=== PATIENT | male | born 1955 | race Two or more races ===

== ENCOUNTER 2025-03-07 13:36 | Inpatient (IN) | payer OTHER ==
[2025-03-07] VITALS (16 sets, daily range): BP systolic 121–178; BP diastolic 65–125; PULSE 71–91; RESP 9–16; TEMP 96.9–98; O2SAT 89–100
[~2025-03-07] VITALS: Ht 170.2 cm; Wt 83.6 kg
--- NOTE | 2025-03-07 13:49 | ED.PDOC ---
HPI Comments 69-year-old male with a medical history of diabetes, presents to the ED via EMS for a chief complaint of substernal chest pain that started today. Patient describes pain as sharp, constant, radiates to his back, and has no alleviating factors. EMS administrated one nitroglycerin with mild relief. Patient's blood glucose EN route was 323. Patient does take metformin for his diabetes and has been compliant with the medication. Patient denies any palpitations, shortness for breath, abdominal pain, nausea, or vomiting. 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, Medications, Allergies Allergies: Coded Allergies: NO KNOWN ALLERGIES (Unverified , 03/07/25) Information Source: Patient, Emergency Med Personnel Mode of Arrival: EMS Severity: Moderate Timing: Hours Duration: Since onset Prehospital treatment: 12 Lead EKG, Refrigerating Technician, NTG Location: Substernal Radiation: Back Quality: Sharp Onset: At Rest Cardiac Risk Factors: Diabetes PE Risk Factors: None History of: None Associated Signs and Symptoms: Back Pain Past Medical History PAST MEDICAL HISTORY: DM Surgical History: Denies all surgeries Family History Family History: Reviewed,noncontributory to illness Social History Smoker: Non-Smoker Alcohol: Denies ETOH Use Drugs: Denies Drug Use Lives In: Home Constitutional: denies: chills, diaphoresis, fatigue, fever, malaise, sweats, weakness, others EENTM: denies: blurred vision, double vision, ear bleeding, ear discharge, ear drainage, ear pain, ear ringing, eye pain, eye redness, hearing loss, mouth pain, mouth swelling, nasal discharge, nose bleeding, nose congestion, nose pain, photophobia, tearing, throat pain, throat swelling, voice changes, others Respiratory: denies: cough, hemoptysis, orthopnea, SOB at rest, shortness of breath, SOB with excertion, stridor, wheezing, others Cardiovascular: reports: chest pain; denies: dizzy spells, diaphoresis, Dyspnea on exertion, edema, irregular heart beat, left arm pain, lightheadedness, palpitations, PND, syncope, others Gastrointestinal: denies: abdomen distended, abdominal pain, blood streaked bowels, constipated, diarrhea, dysphagia, difficulty swallowing, hematemesis, melena, nausea, poor appetite, poor fluid intake, rectal bleeding, rectal pain, vomiting, others Genitourinary: denies: burning, dysuria, flank pain, frequency, hematuria, incontinence, penile discharge, penile sore, pain, testicle pain, testicle swelling, urgency, others Neurological: denies: dizziness, fainting, headache, left sided numbness, left sided weakness, numbness, paresthesia, pre-existing deficit, right sided numbness, right sided weakness, seizure, speech problems, tingling, tremors, weakness, others Musculoskeletal: reports: back pain; denies: gout, joint pain, joint swelling, muscle pain, muscle stiffness, neck pain, others Integumetry: denies: bruises, change in color, change in hair/nails, dryness, laceration, lesions, lumps, rash, wounds, others Allergic/Immunocompromised: denies: Difficulty Healing, Frequent Infections, Hives, Itching, others Hematologic/Lymphatic: denies: anemia, blood clots, easy bleeding, easy bruising, swollen glands, others Endocrine: denies: excessive hunger, excessive sweating, excessive thirst, excessive urination, flushing, intolerance to cold, intolerance to heat, unexplained weight gain, unexplained weight loss, others Psychiatric: denies: anxiety, bipolar disorder, depression, hopeless, panic disorder, schizophrenia, sleepless, suicidal, others All Other Systems: Reviewed and Negative Physical Exam General Appearance: Moderate Distress HEENT: Normal ENT Inspection, Pharynx Normal, TMs Normal Neck: Full Range of Motion, Non-Tender, Normal, Normal Inspection Respiratory: Chest Non-Tender, Lungs Clear, No Accessory Muscle Use, No Respiratory Distress, Normal Breath Sounds Cardiovascular: No Edema, No JVD, No Murmur, No Gallop, Normal Peripheral Pulses, Regular Rate/Rhythm Breast Exam: Deferred Gastrointestinal: No Organomegaly, Non Tender, No Pulsatile Mass, Normal Bowel Sounds, Soft Genitalia: Deferred Pelvic: Deferred Rectal: Deferred Extremities: No calf tenderness, Normal capillary refill, Normal inspection, Normal range of motion, Non-tender, No pedal edema Musculoskeletal : Apperance: Normal Neurologic: Alert, heel finisher II-XII nml as Tested, No Motor Deficits, Normal Affect, Normal Mood, No Sensory Deficits Cerebellar Function: NOT DONE Reflexes: NOT DONE Skin: Dry, Normal Color, Warm Peripheral Pulses: 3+ Radial (R), 3+ Radial (L) Lymphatic: No Adenopathy Was a procedure done? Was a procedure done?: No CP Differential Dx Differential Diagnosis: A-fib, A-Flutter, Angina, Anxiety / Panic Attack, Atrial Dysrhythmia, Electrolyte Disorder, IA Differential Diagnosis: Angina, Aortic dissection, Chest Wall Pain, Cholelithiasis, Costochondritis, Esophageal reflux/spasm, Myocardial Infarction, Pericarditis X-Ray, Labs, Meds, VS Vital Signs Date Time Temp Pulse Resp B/P (MAP) Pulse Ox O2 Delivery O2 Flow Rate FiO2 03/07/25 13:43 98.0 75 34 139/98 94 98.0 03/07/25 13:42 78 Lab Test 03/07/25 13:41 Range/Units White Blood Count 10.7 4.4-10.8 10^3/uL Red Blood Count 4.40 L 4.5-5.90 10^6/uL Hemoglobin 13.6 13.5-17.5 g/dL Hematocrit 39.5 L 41.0-53.0 % Mean Corpuscular Volume 89.9 80.0-100.0 fL Mean Corpuscular Hemoglobin 31.0 28.0-32.0 pg Mean Corpuscular Hemoglobin Concent 34.5 32.0-36.0 g/dL Red Cell Distribution Width 13.2 11.8-14.3 % Platelet Count 233 140-450 10^3/uL Mean Platelet Volume 8.4 6.9-10.8 fL Neutrophils (%) (Auto) 69.2 37.0-80.0 % Lymphocytes (%) (Auto) 19.6 10.0-50.0 % Monocytes (%) (Auto) 10.2 0.0-12.0 % Eosinophils (%) (Auto) 0.4 0.0-7.0 % Basophils (%) (Auto) 0.6 0.0-2.0 % Neutrophils # (Auto) 7.4 1.6-8.6 10 ^3/uL Lymphocytes # (Auto) 2.1 0.4-5.4 10 ^3/uL Monocytes # (Auto) 1.1 0-1.3 10 ^3/uL Eosinophils # (Auto) 0 0-0.8 10 ^3/uL Basophils # (Auto) 0.1 0-0.2 10 ^3/uL Nucleated Red Blood Cells 0.0 % Prothrombin Time Pending Prothrombin Time INR Pending Activated Partial Thromboplast Time Pending Sodium Level Pending Potassium Level Pending Chloride Level Pending Carbon Dioxide Level Pending Anion Gap Pending Blood Urea Nitrogen Pending Creatinine Pending Glomerular Filtration Rate Calc Pending BUN/Creatinine Ratio Pending Serum Glucose Pending Hemoglobin A1c Pending Calcium Level Pending Troponin I High Sensitivity Pending Triglycerides Level Pending Cholesterol Level Pending LDL Cholesterol Pending HDL Cholesterol Pending Patient alert. Complaining of chest pain. Vitals stable. Answering questions. Rhythm strip seen by the paramedics does show STEMI. EKG showed here does show improvement after giving aspirin nitro. Patient continues to have chest pain. Was given heparin. Cardiology at bedside. Transferred to section laborer. Time of 1ST Reevaluation: 13:49 Reevaluation 1ST: Unchanged Patient Education/Counseling: Diagnosis, Treatment, Prognosis Family Education/Counseling: No Family Present SEPSIS Sepsis Screen Physician Orders Urinalysis (03/07/25 13:46) Chest Portable (03/07/25 13:54) Troponin-I Hs (03/07/25 13:47) Electrocardigram (03/07/25 13:47) Troponin-I Hs (03/07/25 14:47) Troponin-I Hs (03/07/25 16:47) Electrocardigram (03/07/25 14:47) Electrocardigram (03/07/25 16:47) Basic Metabolic Panel (03/07/25 13:47) Type And Screen (03/07/25 13:47) Lipid Panel (03/07/25 13:47) PTPTT (03/07/25 13:47) Prothrombin Time W/ Inr (03/07/25 13:47) Hemoglobin A1c (03/07/25 13:47) Morphine Sulfate Injection (03/07/25 14:15) Ondansetron Hcl (Zofran) (03/07/25 14:15) Cl Left Heart Cath (03/07/25 14:05) Cl Left Heart Cath (03/07/25 14:09) Vital Signs Date Time Temp Pulse Resp B/P (MAP) Pulse Ox O2 Delivery O2 Flow Rate FiO2 03/07/25 13:43 98.0 75 34 139/98 94 98.0 03/07/25 13:42 78 Laboratory Tests Test 03/07/25 13:41 White Blood Count 10.7 10^3/uL (4.4-10.8) Departure 1 Departure Time of Disposition: 14:11 Impression: Primary Impression: STEMI (ST elevation myocardial infarction) Qualified Codes: I21.3 - ST elevation (STEMI) myocardial infarction of unspecified site Disposition: ADMITTED INPATIENT Admit to: ICU Condition: Guarded Critical Care Note Critical Care Time?: Yes Stability Stability form required: No Heart Score Heart Score: Heart Score Response (Comments) Value History Highly Suspicious [address]-Deviation 2 Age >65 2 Risk Factors >3 or Hx ASHD 2 Troponin N/A 0 Total 8 I personally scribed for IRIS RUST MD ([email or web address]) on 03/07/25 at 13:49. Electronically submitted by Vy Lorenzo ([facility]). IRIS RUST MD Mar 07, 2025 13:49
[2025-03-07 14:02] LABS: Hematocrit 39.5 % (41.0-53.0); Hemoglobin 13.6 g/dL (13.5-17.5); Mean Corpuscular Hemoglobin 31.0 pg (28.0-32.0); Mean Corpuscular Volume 89.9 fL (80.0-100.0); Nucleated Red Blood Cells % 0.0 %
--- NOTE | 2025-03-07 14:05 | DVHINCON2 ---
Date of service: Mar 07, 2025 History of Present Illness 69 yo M non compliant, DM, HTN, poor dentition, had cath many yearts ago, poor historian called 911 with chest pain while driving from [place] to here. ecg in route showed stemi. stemi called by ER prior to ECG here and i was in hospital and saw pt immediately. ecg here showed SR, RBBB, LAFB and improved st elevation but still ongoing chest pain. pt seen with dustin DENSON speaking indian. he stopped all his meds x 1 month for unknown reasons. BS is over [address] sawant Past Medical History reviewed Allergies: Coded Allergies: NO KNOWN ALLERGIES (Unverified , 03/07/25) Review of Systems 10 pt ros otherwise negative +chest pain +sob Vital Signs Vital Signs Date Time Temp Pulse Resp B/P (MAP) Pulse Ox O2 Delivery O2 Flow Rate FiO2 03/07/25 13:42 78 Physical Exam mild distress, no teeth pt is disheveled appearance s1 s2 rrr diffuse rhonchi abd obese, morbid, soft NT trivial edema Labs/Diagnostic Data Labs Test 03/07/25 13:41 Range/Units Assessment stemi rbbb lafb non compliance dm elevated blood sugar ckd htn Plan/Recommendation obtained informed consent with pt and dustin DENSON espanol pt agrees to plan , hes at highest risk for cv complications given comorbiditeis and acuity of presentation pt wishes to proceed asa heparin cxr reviewed d/w dr sawant 90 mins critical care time spen,t >50% face to face , Plan discussed with: Patient, Other (rn) MACO PINA MD Mar 07, 2025 14:05
[2025-03-07 14:08] LABS: Potassium 3.9 mmol/L (3.5-5.1); Sodium 144 mmol/L (136-145)
[2025-03-07 14:09] LABS: Anion Gap 14 (5-15); Calcium 10.1 mg/dL (8.7-10.4); Carbon Dioxide 23 mmol/L (20-31)
[2025-03-07] MEDS: HEPARIN SODIUM (PORCINE) 5000 UNITS/ML 1ML VIAL IV ONE (14:11)
--- NOTE | 2025-03-07 14:11 | DVH ---
CHEST RADIOGRAPH Indication: CHEST PAIN Technique: Single frontal view of the chest was obtained Comparison: None FINDINGS: Lines and Tubes: None Lungs: No focal consolidation. Pleura: No effusion. No pneumothorax. Cardiomediastinal contours: Calcified aortic arch. Bones: No acute osseous abnormality. IMPRESSION: 1. No acute cardiopulmonary disease.
[2025-03-07 14:12] LABS: Chloride 107 mmol/L (98-107)
[2025-03-07] MEDS: ANGIOMAX 250 MG VIAL IV ONE (14:12)
[2025-03-07] MEDS: SODIUM CHL 0.9% 50 ML ONE (14:13)
[2025-03-07] MEDS: fentaNYL CITRATE 100 MCG/2 ML VL ONE (14:13)
[2025-03-07] MEDS: MIDAZOLAM HCL 2MG/2ML 2ml VIAL (1mg/ml) ONE (14:13)
[2025-03-07 14:14] LABS: BUN/Creatinine Ratio 12.8 (10.0-20.0); Blood Urea Nitrogen 18 mg/dL (9-23)
[2025-03-07] MEDS: IODIXANOL 320MG/ML 100ML BTL IV ONE (14:14)
[2025-03-07] MEDS: HEPARIN IN NS 1000Units/500mL 1,500 ML ONE (14:14)
[2025-03-07 14:15] LABS: Glucose 289 mg/dL (74-106); INR 1.04 (0.9-1.15); Partial Thromboplastin Time 22.6 SEC (24.5-34.5); Prothrombin Time 11.0 sec (9.3-11.8); Triglycerides 156 mg/dL (< 150)
[2025-03-07 14:16] LABS: Cholesterol 172 mg/dL (< 200)
[2025-03-07 14:17] LABS: HDL Cholesterol 38 mg/dL (40-59)
[2025-03-07] MEDS: VERAPAMIL 2.5MG/ML INJ 2ML VIAL IV ONE (14:19)
[2025-03-07] MEDS: LIDOCAINE 2%HCL (LOCAL ANESTH.) INJ 20ML MDV ONE (14:19)
[2025-03-07] MEDS: ONDANSETRON HCL 4 MG/2 ML VIAL IV ONE (14:20)
[2025-03-07] MEDS: MORPHINE SULFATE 4 MG/ML SYR/VIAL IV ONE (14:21)
[2025-03-07] MEDS: TICAGRELOR 90 MG TAB ONE (14:49)
--- NOTE | 2025-03-07 15:22 | DVHOP2 ---
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 sedation 15-30 mins, sedation 31-45 mins, PTCA 1 vessel, PCI 1 vessel, Acute [place] intervention, IVUS 2 vessels (left main and LAD), PREOPERATIVE DIAGNOSES: Anterior stemi POSTOP DIAGNOSIS: same DESCRIPTION OF PROCEDURE: The patient or appropriate family signed informed consent understanding the risks, benefits and alternatives of the procedure, they wished to proceed. The patient was brought to the cardiac laborer hide house [place]. The patient was prepped in a sterile fashion. Sedation was used per cardiac cath protocol. I administered 2 mL of 2% lidocaine to the right wrist. With an antegrade front wall puncture. I cannulated the right radial artery and placed a 6-English Glidesheath slender. Next, an intra-arterial spasmolytic was administered. Next, a - 6French [place] catheter andXB3 guide and were used for coronary angiogram and LVEDP measurement and pressure pullback. At the completion of procedure, all guides and wires were removed, and there were no immediate complications. FINDINGS: RCA: Moderate vessel off the right sinus of Valsalva, there is no severe flow limiting stenosis. mild diffuse plaque LEFT MAIN: Moderate size left main, it btri urcates into LAD and circumflex. and RAMUS. its patent RAMUS: patent proximally with mild plaquing CIRCUMFLEX: Moderate caliber vessel coming off the left main with no flow limiting stenosis. 60% OM1 diffuse disease . mid CX has 50 % stenosis but small vessel LAD: LAD is a moderate caliber vessel coming of the left main. 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 I started with a 6F ___XB3_ Guide to intubate the LM __. Angiomax bolus and gtt was started. Following this, I decided to wire using an .014 BMW across the culprit lesion with ease. At this time, we performed balloon angioplasty with a _2.5 x 15 mm balloon by s12__ ATMS over __15__ seconds with __2_ number of inflations. Following this, I decided to place a stent using a 3.0 x 30 mm onyx____ stent inflated up to __18___ ATMS over 15 seconds with two separate inflations. Following this, the stent balloon removed and angio performed showing 0% residual stenosis. I brougth an hughes eye IVUS catheter but the the LAD had a 90 degree ostial turn and thus it would cross into prox LAD but not further given angulation. prox LAD and left main had mild diffuse plaque. COLIN pre/post: 3./3 CONCLUSIONS: 1. sp PCI to a 99% LAD, anterior stemi with WERO PLAN: Aggressive risk factor modification and medical management for the patient. DAPT x 1 year uninterrupted statin echo admit to icu MACO PINA MD Mar 07, 2025 15:22
[2025-03-07] MEDS ORDERED: MORPHINE SULFATE INJ 2 MG/ml SYRG IV PRN ×3 (15:30→16:30)
[2025-03-07] MEDS ORDERED: NITROGLYCERIN 0.4 MG SL TAB SL PRN ×2 (15:30→16:30)
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
[2025-03-07] MEDS ORDERED: ACETAMINOPHEN 325 MG TAB PO PRN (16:30)
[2025-03-07] MEDS ORDERED: ONDANSETRON HCL 4 MG/2 ML VIAL IV PRN (16:30)
[2025-03-07 16:57] LABS: Magnesium 2.0 mg/dL (1.6-2.6)
[2025-03-07 17:51] LABS: Lactic Acid w/Reflex 3.0 mmol/L (0.4-2.0)
[2025-03-07] MEDS ORDERED: DEXTROSE (50%) 50ML SYRG IV PRN (18:00)
[2025-03-07] MEDS: POTASSIUM PHOSPHATE 22 MEQ in SODIUM CHL 0.9% 100 ML IV ONE (18:30)
[2025-03-07] MEDS: HYDROcodone-ACET 5/325MG TAB PO PRN (20:27)
[2025-03-07] MEDS: TICAGRELOR 90 MG TAB PO SCH (21:09)
[2025-03-07] MEDS: ATORVASTATIN 20 MG TAB PO SCH (21:10)
[2025-03-07] MEDS: ENALAPRIL MALEATE 2.5 MG TAB PO SCH (21:10)
[2025-03-07] MEDS: CARVEDILOL 3.125 MG TAB PO SCH (21:11)
[2025-03-07] MEDS: InsuLIN REG 1unit/0.01ml Soln (100units/ml) SC SCH (21:22)
[2025-03-07] MEDS: ACCU-CHEK COMFORT CURVE STRIP VI SCH (21:23)
[2025-03-08] VITALS (21 sets, daily range): BP systolic 89–130; BP diastolic 39–67; PULSE 59–81; RESP 10–29; TEMP 97.5–98.5; O2SAT 80–100
[2025-03-08 04:25] LABS: Hematocrit 36.6 % (41.0-53.0); Hemoglobin 12.8 g/dL (13.5-17.5); Mean Corpuscular Hemoglobin 31.2 pg (28.0-32.0); Mean Corpuscular Volume 89.0 fL (80.0-100.0); Nucleated Red Blood Cells % 0.1 %
[2025-03-08 04:38] LABS: Alanine Aminotransferase 32 U/L (7-40); Alkaline Phosphatase 114 U/L (46-116); Anion Gap 9 (5-15); BUN/Creatinine Ratio 15.5 (10.0-20.0); Blood Urea Nitrogen 11 mg/dL (9-23); Calcium 8.9 mg/dL (8.7-10.4); Carbon Dioxide 27 mmol/L (20-31); Chloride 106 mmol/L (98-107); Potassium 3.5 mmol/L (3.5-5.1); Sodium 142 mmol/L (136-145); Total Protein 5.9 g/dL (5.7-8.2)
[2025-03-08 04:39] LABS: Albumin 3.7 g/dL (3.2-4.8)
[2025-03-08 04:40] LABS: Bilirubin, Total 1.2 mg/dL (0.2-1.0)
[2025-03-08 04:42] LABS: Glucose 124 mg/dL (74-106)
[2025-03-08] MEDS: ENOXAPARIN SOD 40 MG/0.4 ML SYRINGE SC SCH (08:38)
--- NOTE | 2025-03-08 11:12 | DVHPNRES ---
Progress Note Date Seen: Mar 08, 2025 Resident Creating Document: MAGGY VALERO RESIDENT Medical Necessity Reason Pt with a Central, PICC or Fol: No Subjective Review of Systems 69 year old male patient with PMH of Hypertension, dyslipidemia, prediabetes, CADA with RI in 2015 s/p PCI with 3 stents placed, osteoarthritis, who presents to the ED via EMS with oppressive, retrosternal chest pain, intensity 8/10 associated with diaphoresis, which started at approximately 12pm on 03/07/2025 after drinking beverages in a gas station in functional class IV, prompting him to call EMS who showed up on scene and diagnosed and anterior STEMI. Patient was given nitroglycerin and aspirin on scene which partially relieved the pain to 6/10. Upon arrival to ED he was given IV morphine which completely relieved the pain, with EKG that did not show STEMI (sinus rhythm with RBBB). Evaluated by Dr London, who indicated coronary angiography. Patient reports non complaince with home medication, which includes Aspirin and Atorvastatin. Denies any other associated symptom. Objective vital signs Vital Sign Date Time Temp Pulse Resp B/P (MAP) Pulse Ox O2 Delivery O2 Flow Rate FiO2 03/08/25 10:00 70 29 97/43 (61) 97 03/08/25 08:00 Room Air* 0 21 03/08/25 08:00 97.8 97.8 Total Intake and Output 03/07/25 03/07/25 03/08/25 15:00 23:00 07:00 Intake Total 155 ml 200 ml Output Total 700 ml 350 ml Balance -545 ml -150 ml medications Current Medications Medications Dose Ordered Sig/Raymond Route Start Time Stop Time Status Last Admin Dose Admin Ticagrelor 90 mg BID PO 03/07/25 22:00 03/08/25 08:38 90 MG Atorvastatin Calcium 40 mg HS PO 03/07/25 22:00 03/07/25 21:10 40 MG Enalapril Maleate 5 mg Q12HR PO 03/07/25 22:00 03/08/25 08:38 5 MG Carvedilol 6.25 mg Q12HR PO 03/07/25 22:00 03/08/25 08:37 6.25 MG Acetaminophen 325 mg Q4HP PRN PO 03/07/25 16:30 Ondansetron HCl 4 mg Q4HP PRN IV 03/07/25 16:30 Morphine Sulfate 2 mg Q4HPRN PRN IV 03/07/25 16:30 Enoxaparin Sodium 40 mg DAILY SC 03/08/25 10:00 03/08/25 08:38 40 MG Nitroglycerin 0.4 mg Q5MINP PRN SL 03/07/25 16:30 Morphine Sulfate 2 mg Q30M PRN IV 03/07/25 16:30 Diagnostic Test (Pha) 1 strip ACHS 03/07/25 22:00 03/08/25 08:38 1 STRIP Insulin Human Regular ACHS SC 03/07/25 22:00 03/08/25 06:36 2 UNITS Dextrose 50 ml UD PRN IV 03/07/25 18:00 Acetaminophen/ Hydrocodone Bitart 1 tab Q4HPRN PRN PO 03/07/25 20:00 03/07/25 20:27 1 TAB Aspirin 81 mg DAILY PO 03/08/25 10:00 03/08/25 08:50 81 MG Examination Patient lying in bed, in no acute distress General: Lucid, afebrile, mucosae are moist Cardiovascular: Normal S1 and S2. No murmurs, gallops or rubs. Puncture site in right radial region with no hematoma nor erythema Respiratory: Normal ventilation mechanics. Clear lung sounds on auscultation Abdomen: Soft, nontender, no organomegaly, normal bowel sounds MSK/skin: Mobilizes 4 limbs. Skin is dry and warm Neurological: Oriented in 3 spheres. No motor no sensitive deficits. Pupils are isocoric and reactive. laboratory and microbiology Laboratory Tests 03/08/25 03:00 Test 03/08/25 03:00 Range/Units Serum Glucose 124 #H 74-106 mg/dL Problem List/Assessment/Plan Problem List/Assessment/Plan # Anterior STEMI - s/p PCI to mid LAD # JONNY hemodynamically mediated (VMN) # Lactic acidosis due to STEMI # Transaminitis secondary to RI # Hyperlactacidemia # Coronary artery disease with history of RI - s/p PCI # Hypertension # Dyslipidemia # Diabetes non insulin dependent - Uncontrolled (previous pre-diabetes, hemoglobin A1C 7.5%) # Nonadherence - EKG on scene showed anterior STEMI, ED EKG showed sinus rhythm with RBBB and anterior left fascicular block. Troponin 156. Anginal pain. - Cardiology on board: Completed coronary angiography which showed mid LAD 99% stenosis, s/p PCI with 1 stent (rest of anatomy OM1 60%, mid Cx 50%, ostial LAD 70%) - Currently on DAPT (ASA and Ticagrelor), statins, beta-blockers and TRISHA inhibitors. - Ordered echocardiogram - On insulin sliding scale - Explained importance of compliance with medication. - Physical Therapy - Downgraded to TELE today - Cardiac diet Goals of care discussed with patient 23 minutes: Full code. Plan Discussed with Dr. Altman Plan discussed with: Patient My Orders My Orders Orders - MAGGY VALERO RESIDENT Procedure Category Date Status Time Transfer Orders XFER 03/08/25 Transmitted 10:16 Pt Request For Service PT 03/08/25 Logged 10:16 MAGGY VALERO RESIDENT Mar 08, 2025 11:12
[2025-03-08] MEDS: POTASSIUM EFFERVESENT TAB 25 MEQ PO ONE (12:01)
--- NOTE | 2025-03-08 14:04 | DVHPN2 ---
Progress Note Date Seen: Mar 08, 2025 Medical Necessity Reason Pt with a Central, PICC or Fol: No Subjective Patient reports: Feels better Objective vital signs Vital Sign Date Time Temp Pulse Resp B/P (MAP) Pulse Ox O2 Delivery O2 Flow Rate FiO2 03/08/25 13:00 65 11 120/51 (74) 98 03/08/25 12:00 98.0 98.0 03/08/25 08:00 Room Air* 0 21 Total Intake and Output 03/07/25 03/07/25 03/08/25 15:00 23:00 07:00 Intake Total 155 ml 200 ml Output Total 700 ml 350 ml Balance -545 ml -150 ml medications Current Medications Medications Dose Ordered Sig/Raymond Route Start Time Stop Time Status Last Admin Dose Admin Atorvastatin Calcium 40 mg HS PO 03/07/25 22:00 03/07/25 21:10 40 MG Enalapril Maleate 5 mg Q12HR PO 03/07/25 22:00 03/08/25 08:38 5 MG Carvedilol 6.25 mg Q12HR PO 03/07/25 22:00 03/08/25 08:37 6.25 MG Acetaminophen 325 mg Q4HP PRN PO 03/07/25 16:30 Ondansetron HCl 4 mg Q4HP PRN IV 03/07/25 16:30 Morphine Sulfate 2 mg Q4HPRN PRN IV 03/07/25 16:30 Enoxaparin Sodium 40 mg DAILY SC 03/08/25 10:00 03/08/25 08:38 40 MG Nitroglycerin 0.4 mg Q5MINP PRN SL 03/07/25 16:30 Morphine Sulfate 2 mg Q30M PRN IV 03/07/25 16:30 Diagnostic Test (Pha) 1 strip ACHS 03/07/25 22:00 03/08/25 08:38 1 STRIP Insulin Human Regular ACHS SC 03/07/25 22:00 03/08/25 11:46 3 UNITS Dextrose 50 ml UD PRN IV 03/07/25 18:00 Acetaminophen/ Hydrocodone Bitart 1 tab Q4HPRN PRN PO 03/07/25 20:00 03/07/25 20:27 1 TAB Aspirin 81 mg DAILY PO 03/08/25 10:00 03/08/25 08:50 81 MG Clopidogrel Bisulfate 75 mg DAILY PO 03/09/25 10:00 UNV Examination: GENERAL:Abnormal, HEENT:Abnormal, LUNGS:Abnormal, CVS:Abnormal, ABDOMEN:Normal laboratory and microbiology Laboratory Tests 03/08/25 03:00 Test 03/08/25 03:00 Range/Units Serum Glucose 124 #H 74-106 mg/dL Microbiology Date/Time Source Procedure Growth Status 03/07/25 15:15 Nose MRSA Screen - Final Complete Problem List/Assessment/Plan Problem List/Assessment/Plan stemi cad CHF ckd DM non compliance s/p anterior wall stemi changed to plavix asa statin arb, bb, and aldactone pt instructed not to miss his meds under any circumstance, pt missed meds x 1 month already 40 mins critical care time spent Plan discussed with: Patient My Orders My Orders Orders - MACO PINA MD Procedure Category Date Status Time Cl Left Heart Cath CL 03/07/25 Taken 14:05 Cl Left Heart Cath CL 03/07/25 Logged 14:09 Admit ADMIT 03/07/25 Transmitted 15:16 Stat Ekg For Chest [facility] 03/07/25 In Process Pain 15:16 Notify Md Of Changes [facility] 03/07/25 In Process From Base 15:16 Recreation Superintendent For [facility] 03/07/25 In Process 24 Hours 15:16 Emergency Dysrhythmia [facility] 03/07/25 In Process Protocol 15:16 Rhythm Strips Once [facility] 03/07/25 In Process Every Shift 15:16 Oxygen By Nasal RT 03/07/25 Transmitted Cannula 15:16 Cardiac DIET 03/07/25 Transmitted Diet-2gna,Lofat,Lochol Dinner Atorvastatin (Lipitor) PHA 03/07/25 In Process 22:00 Enalapril Tablet PHA 03/07/25 In Process (Vasotec Tablet) 22:00 Communication Order ORDERS 03/07/25 Transmitted 15:55 Carvedilol Tablet PHA 03/07/25 In Process (Coreg Tablet) 22:00 Echo 2d Mode Cardiac US 03/08/25 Logged DOP 15:16 Aspirin Chewable PHA 03/08/25 In Process Tablet 10:00 Date of Service: Mar 08, 2025 Billing Provider: MACO PINA MD Common Visit Codes: NOT BILLABLE MACO PINA MD Mar 08, 2025 14:04
[2025-03-08] MEDS: CLOPIDOGREL BISULFATE 75 MG TAB PO ONE (22:19)
[2025-03-09 01:00] VITALS: BP 135/80; PULSE 81; RESP 17; TEMP 98.3; O2SAT 97
[2025-03-09 05:00] VITALS: BP 108/68; PULSE 85; RESP 17; TEMP 98.2; O2SAT 98
[2025-03-09 05:50] LABS: Hematocrit 37.7 % (41.0-53.0); Hemoglobin 13.1 g/dL (13.5-17.5); Mean Corpuscular Hemoglobin 31.2 pg (28.0-32.0); Mean Corpuscular Volume 89.4 fL (80.0-100.0); Nucleated Red Blood Cells % 0.0 %
[2025-03-09 06:05] LABS: Alanine Aminotransferase 30 U/L (7-40); Albumin 3.6 g/dL (3.2-4.8); Anion Gap 7 (5-15); BUN/Creatinine Ratio 18.1 (10.0-20.0); Blood Urea Nitrogen 13 mg/dL (9-23); Calcium 8.8 mg/dL (8.7-10.4); Carbon Dioxide 27 mmol/L (20-31); Chloride 107 mmol/L (98-107); Potassium 4.0 mmol/L (3.5-5.1); Sodium 141 mmol/L (136-145); Total Protein 6.0 g/dL (5.7-8.2)
[2025-03-09 06:13] LABS: Alkaline Phosphatase 120 U/L (46-116); Bilirubin, Total 1.5 mg/dL (0.2-1.0); Glucose 125 mg/dL (74-106)
[2025-03-09 08:00] VITALS: PULSE 77; RESP 17; O2SAT 99
[2025-03-09 08:59] VITALS: BP 115/65; PULSE 77; RESP 17; TEMP 97.6; O2SAT 99
[2025-03-09] MEDS: CLOPIDOGREL BISULFATE 75 MG TAB PO SCH (09:35)
--- NOTE | 2025-03-09 10:07 | DVHPN2 ---
Progress Note Date Seen: Mar 09, 2025 Medical Necessity Reason Pt with a Central, PICC or Fol: No Subjective Patient reports: Feels better Objective vital signs Vital Sign Date Time Temp Pulse Resp B/P (MAP) Pulse Ox O2 Delivery O2 Flow Rate FiO2 03/09/25 09:36 115/65 03/09/25 09:35 77 03/09/25 08:59 97.6 17 99 97.6 03/09/25 08:00 Room Air* 0 21 Total Intake and Output 03/08/25 03/08/25 03/09/25 15:00 23:00 07:00 Intake Total 1030 ml 800 ml Output Total 200 ml 600 ml Balance 830 ml 200 ml medications Current Medications Medications Dose Ordered Sig/Raymond Route Start Time Stop Time Status Last Admin Dose Admin Atorvastatin Calcium 40 mg HS PO 03/07/25 22:00 03/08/25 22:20 40 MG Enalapril Maleate 5 mg Q12HR PO 03/07/25 22:00 03/09/25 09:36 5 MG Carvedilol 6.25 mg Q12HR PO 03/07/25 22:00 03/09/25 09:35 6.25 MG Acetaminophen 325 mg Q4HP PRN PO 03/07/25 16:30 Ondansetron HCl 4 mg Q4HP PRN IV 03/07/25 16:30 Morphine Sulfate 2 mg Q4HPRN PRN IV 03/07/25 16:30 Enoxaparin Sodium 40 mg DAILY SC 03/08/25 10:00 03/09/25 09:34 40 MG Nitroglycerin 0.4 mg Q5MINP PRN SL 03/07/25 16:30 Morphine Sulfate 2 mg Q30M PRN IV 03/07/25 16:30 Diagnostic Test (Pha) 1 strip ACHS 03/07/25 22:00 03/09/25 06:13 1 STRIP Insulin Human Regular ACHS SC 03/07/25 22:00 03/09/25 06:09 2 UNITS Dextrose 50 ml UD PRN IV 03/07/25 18:00 Acetaminophen/ Hydrocodone Bitart 1 tab Q4HPRN PRN PO 03/07/25 20:00 03/07/25 20:27 1 TAB Aspirin 81 mg DAILY PO 03/08/25 10:00 03/09/25 09:35 81 MG Clopidogrel Bisulfate 75 mg DAILY PO 03/09/25 10:00 03/09/25 09:35 75 MG Examination: GENERAL:Abnormal, HEENT:Abnormal, LUNGS:Abnormal, CVS:Abnormal, ABDOMEN:Abnormal laboratory and microbiology Laboratory Tests 03/09/25 04:59 Test 03/09/25 04:59 Range/Units Serum Glucose 125 H 74-106 mg/dL Microbiology Date/Time Source Procedure Growth Status 03/07/25 15:15 Nose MRSA Screen - Final Complete Problem List/Assessment/Plan Problem List/Assessment/Plan stemi cad CHF ckd DM non compliance s/p anterior wall stemi changed to plavix asa statin arb, bb, and aldactone pt instructed not to miss his meds under any circumstance, pt missed meds x 1 month already long talk again with RN malay speaking, pt must take his meds dc today if family has his meds in hand 40 mins critical care time spent Plan discussed with: Patient Date of Service: Mar 09, 2025 Billing Provider: MACO PINA MD Common Visit Codes: NOT BILLABLE MACO PINA MD Mar 09, 2025 10:07
--- NOTE | 2025-03-09 10:24 | DVHSR ---
APPROVED REPORT EXAM: LIMITED Two-dimensional and M-mode echocardiogram with Doppler and color Doppler. Blood Pressure: 124/65 mmHg INDICATION STEMI RISK FACTORS Height: 5' 7", Weight: 178 DIMENSIONS LVDd 4.3 (3.8-5.7cm) LA (2D) 4.3 (1.9-4.0cm) Aortic Root 3.5 (2.0-3.7cm) LVDs 3.5 (2.5-4.0cm) LA (MM) (1.9-4.0cm) Aortic Cusp Exc 1.6 (1.5-2.0cm) EF (%) 40.0 (55-70%) Rt. Atrium 4.2 (1.9-4.0cm) Asc. Aorta cm IVSd 1.0 (0.7-1.1cm) RV (D) (1.8-2.4cm) PWd 1.1 (0.7-1.1cm) Mitral Valve Mitral Mitral Stenosis E wave 0.50m/s MV Mean GR. mmHg A wave 0.80m/s MV Peak GR. mmHg E/A ratio 0.6 2D MVA cm2 Aortic Valve Aortic Valve Aortic Stenosis V1 0.90m/s AO Mean GR. 3mmHg V2 1.10m/s AO Peak GR. 5mmHg LVOT Diameter 2.4 (1.8-2.4cm) Doppler ISHAN 3.70cm2 Other Information Quality : Technically Limited Rhythm : Technically limited study due to patient position. Conclusion lvef 40 % apex is hypokinetic normal rv function normal atria no severe valve abnormalities noted
[2025-03-09] MEDS ORDERED: CLOP75TA70 PO (12:38)
[2025-03-09] MEDS ORDERED: ATOR20TA50 PO (12:38)
[2025-03-09] MEDS ORDERED: SPIR25TA PO (12:38)
[2025-03-09] MEDS ORDERED: ENAL1TAB42 PO (12:38)
[2025-03-09] MEDS ORDERED: ASPI-325 PO (12:38)
[2025-03-09] MEDS ORDERED: CARV-214 PO (12:38)
--- NOTE | 2025-03-09 12:47 | DVHDSRES ---
Discharge Summary Date of Admission Resident Creating Document: MAGGY VALERO RESIDENT Mar 07, 2025 at 15:16 Date of Discharge: Mar 09, 2025 Admitting Diagnosis STEMI, Labs/Diagnostic Data: Laboratory Results Test 03/09/25 05:17 03/09/25 04:59 03/07/25 18:51 03/07/25 13:41 POC Glucose 136 mg/dl (70-106) White Blood Count 8.2 10^3/uL (4.4-10.8) Red Blood Count 4.22 10^6/uL (4.5-5.90) Hemoglobin 13.1 g/dL (13.5-17.5) Hematocrit 37.7 % (41.0-53.0) Mean Corpuscular Volume 89.4 fL (80.0-100.0) Mean Corpuscular Hemoglobin 31.2 pg (28.0-32.0) Mean Corpuscular Hemoglobin Concent 34.8 g/dL (32.0-36.0) Red Cell Distribution Width 13.5 % (11.8-14.3) Platelet Count 209 10^3/uL (140-450) Mean Platelet Volume 8.6 fL (6.9-10.8) Neutrophils (%) (Auto) 68.4 % (37.0-80.0) Lymphocytes (%) (Auto) 17.3 % (10.0-50.0) Monocytes (%) (Auto) 12.1 % (0.0-12.0) Eosinophils (%) (Auto) 1.8 % (0.0-7.0) Basophils (%) (Auto) 0.4 % (0.0-2.0) Neutrophils # (Auto) 5.6 10 ^3/uL (1.6-8.6) Lymphocytes # (Auto) 1.4 10 ^3/uL (0.4-5.4) Monocytes # (Auto) 1.0 10 ^3/uL (0-1.3) Eosinophils # (Auto) 0.2 10 ^3/uL (0-0.8) Basophils # (Auto) 0 10 ^3/uL (0-0.2) Nucleated Red Blood Cells 0.0 % Sodium Level 141 mmol/L (136-145) Potassium Level 4.0 mmol/L (3.5-5.1) Chloride Level 107 mmol/L (98-107) Carbon Dioxide Level 27 mmol/L (20-31) Anion Gap 7 (5-15) Blood Urea Nitrogen 13 mg/dL (9-23) Creatinine 0.72 mg/dL (0.700-1.30) Glomerular Filtration Rate Calc 98 mL/min (>90) BUN/Creatinine Ratio 18.1 (10.0-20.0) Serum Glucose 125 mg/dL (74-106) Calcium Level 8.8 mg/dL (8.7-10.4) Total Bilirubin 1.5 mg/dL (0.2-1.0) Aspartate Amino Transferase (AST) 103 U/L (13-40) Alanine Aminotransferase (ALT) 30 U/L (7-40) Alkaline Phosphatase 120 U/L (46-116) Total Protein 6.0 g/dL (5.7-8.2) Albumin 3.6 g/dL (3.2-4.8) Lactic Acid Level 2.0 mmol/L (0.4-2.0) Prothrombin Time 11.0 sec (9.3-11.8) Prothrombin Time INR 1.04 (0.9-1.15) Activated Partial Thromboplast Time 22.6 SEC (24.5-34.5) Hemoglobin A1c 7.5 % A1C (<5.7) Phosphorus Level 1.5 mg/dL (2.4-5.1) Magnesium Level 2.0 mg/dL (1.6-2.6) Troponin I High Sensitivity 145 ng/L (</=54) Triglycerides Level 156 mg/dL (< 150) Cholesterol Level 172 mg/dL (< 200) LDL Cholesterol 102 mg/dL (< 100) HDL Cholesterol 38 mg/dL (40-59) Vitamin B12 Level 342 pg/mL (211-911) Vitamin D 25-Hydroxy 36.2 ng/mL (30.0-100) Thyroid Stimulating Hormone (TSH) 1.28 uIU/mL (0.55-4.78) Other Laboratory Tests 03/09/25 04:59 Brief Hx & Hospital Course: 69 year old male patient with PMH of Hypertension, dyslipidemia, prediabetes, CADA with CT in 2014 s/p PCI with 3 stents placed, osteoarthritis, who presents to the ED via EMS with oppressive, retrosternal chest pain, intensity 8/10 associated with diaphoresis, which started at approximately 12pm on 03/07/2025 after drinking beverages in a gas station in functional class IV, prompting him to call EMS who showed up on scene and diagnosed and anterior STEMI. Patient was given nitroglycerin and aspirin on scene which partially relieved the pain to 6/10. Upon arrival to ED he was given IV morphine which completely relieved the pain, with EKG that did not show STEMI (sinus rhythm with RBBB). Evaluated by Dr Pina, who indicated coronary angiography. Patient reports non complaince with home medication, which includes Aspirin and Atorvastatin. Denies any other associated symptom. EKG on scene showed anterior STEMI, ED EKG showed sinus rhythm with RBBB and anterior left fascicular block. Troponin 156. Anginal pain. Completed coronary angiography which showed mid LAD 99% stenosis, s/p PCI with 1 stent (rest of anatomy OM1 60%, mid Cx 50%, ostial LAD 70%). Patient is put on DAPT, ASA and Plavix, also patient is on statins beta-jewel and TRISHA inhibitors, counseled patient about not to miss his meds under any circumstance, pt missed meds x 1 month already . Medicine sent to pharmacy, patient is going to be discharged home today, advised patient to follow up with PCP in 1-2 weeks, and Cardiology as scheduled. Consults/Reason for consult Cardiology for angiogram and PCI Operations or Procedures Patient: SAMUEL MORGAN Acct: [id number] : 1955 Loc: ER Age/Sex: 69/M Room: / Bed: Attending Phy: Operative Report Operative Report CARDIAC AUTO [employer]ULER PROCEDURE REPORT [place], [place] Date of Service: ` Commissioning Agent: Jamaal Pina MD PROCEDURES PERFORMED: Coronary angiogram, left heart catheterization, conscious sedation administration and supervision, less than 15 minutes; fluoroscopy use and interpretation. sedation 15-30 mins, sedation 31-45 mins, PTCA 1 vessel, PCI 1 vessel, Acute CT intervention, IVUS 2 vessels (left main and LAD), PREOPERATIVE DIAGNOSES: Anterior stemi POSTOP DIAGNOSIS: same DESCRIPTION OF PROCEDURE: The patient or appropriate family signed informed consent understanding the risks, benefits and alternatives of the procedure, they wished to proceed. The patient was brought to the cardiac engineering lab technician in n.p.o. state. The patient was prepped in a sterile fashion. Sedation was used per cardiac cath protocol. I administered 2 mL of 2% lidocaine to the right wrist. With an antegrade front wall puncture. I cannulated the right radial artery and placed a 6-Polish Glidesheath slender. Next, an intra-arterial spasmolytic was administered. Next, a - 6[place] catheter andXB3 guide and were used for coronary angiogram and LVEDP measurement and pressure pullback. At the completion of procedure, all guides and wires were removed, and there were no immediate complications. FINDINGS: RCA: Moderate vessel off the right sinus of Valsalva, there is no severe flow limiting stenosis. mild diffuse plaque LEFT MAIN: Moderate size left main, it btri urcates into LAD and circumflex. and RAMUS. its patent RAMUS: patent proximally with mild plaquing CIRCUMFLEX: Moderate caliber vessel coming off the left main with no flow limiting stenosis. 60% OM1 diffuse disease . mid CX has 50 % stenosis but small vessel LAD: LAD is a moderate caliber vessel coming of the left main. 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 I started with a 6F ___XB3_ Guide to intubate the LM __. Angiomax bolus and gtt was started. Following this, I decided to wire using an .014 BMW across the culprit lesion with ease. At this time, we performed balloon angioplasty with a _2.5 x 15 mm balloon by s12__ ATMS over __15__ seconds with __2_ number of inflations. Following this, I decided to place a stent using a 3.0 x 30 mm onyx____ stent inflated up to __18___ ATMS over 15 seconds with two separate inflations. Following this, the stent balloon removed and angio performed showing 0% residual stenosis. I brougth an pala eye IVUS catheter but the the LAD had a 90 degree ostial turn and thus it would cross into prox LAD but not further given angulation. prox LAD and left main had mild diffuse plaque. COLIN pre/post: 3./3 CONCLUSIONS: 1. sp PCI to a 99% LAD, anterior stemi with WERO PLAN: Aggressive risk factor modification and medical management for the patient. DAPT x 1 year uninterrupted statin echo admit to icu JAMAAL PINA MD Mar 07, 2025 15:22 DICTATED BY:JAMAAL PINA MD DICTATED DATE/TIME:03/07/251521 ELECTRONICALLY SIGNED BY:JAMAAL PINA MD 03/07/251521 ELECTRONICALLY CO-SIGNED BY: Condition at Discharge: Stable Final Diagnosis/Problems List # Anterior STEMI - s/p PCI to mid LAD # JONNY hemodynamically mediated (VMN) # Lactic acidosis due to STEMI # Transaminitis secondary to CT # Hyperlactacidemia # Coronary artery disease with history of CT - s/p PCI # Hypertension # Dyslipidemia # Diabetes non insulin dependent - Uncontrolled (previous pre-diabetes, hemoglobin A1C 7.5%) # Nonadherence Discharge Disposition: Home SNF Discharge Will this Physician continue t: No Discharge Instruct/Medications Diet: Cardiac 2g Na,low cholest Activity: No Restrictions, As Tolerated Follow Up/Referral: Follow up with PCP in 1-2 weeks Follow up with Cardiology as scheduled Medications: Aspirin 81mg daily Plavix 75 mg daily Carvedilol 6.25 mg b.i.d. Enalapril 5 mg b.i.d. Atorvastatin 40 mg daily Spironolactone 25 mg daily Resume home medications Scheduled Aspirin (Aspirin Low Dose), 81 MG PO DAILY Atorvastatin Calcium (Atorvastatin Calcium), 40 MG PO HS Carvedilol (Coreg), 6.25 MG PO Q12HR Clopidogrel Bisulfate (Clopidogrel), 75 MG PO DAILY Enalapril Maleate (Enalapril Maleate), 5 MG PO Q12HR Spironolactone (Aldactone), 25 MG PO DAILY Discharge Statement: "Patient was advised to return to the ER or call 911 if any headaches, dizziness, shortness of breath, chest pain, abdominal pain, bleeding, fevers, or worsening of medical condition. Patient was counseled about treatment plan, medications, possible side effects, patientverbalized understanding. All questions were answered to the best of my ability. This discharge took greater then 30 minutes in planning, reviewing documentation, counseling the patient, and discussing with other team members." ASSESSMENT ASSESSMENT Assessment # Anterior STEMI - s/p PCI to mid LAD # JONNY hemodynamically mediated (VMN) # Lactic acidosis due to STEMI # Transaminitis secondary to CT # Hyperlactacidemia # Coronary artery disease with history of CT - s/p PCI # Hypertension # Dyslipidemia # Diabetes non insulin dependent - Uncontrolled (previous pre-diabetes, hemoglobin A1C 7.5%) # Nonadherence MAGGY VALERO RESIDENT Mar 09, 2025 12:47
[2025-03-09 12:50] VITALS: BP 112/64; PULSE 74; RESP 17; TEMP 98; O2SAT 97
[2025-03-09 13:14] VITALS: BP 112/64; PULSE 74; RESP 16; TEMP 98; O2SAT 97
[2025-03-10] MEDS ORDERED: SPIRONOLACTONE 25 MG TAB PO SCH (10:00)
== END 2025-03-09 16:00 | disposition home or self-care (01) | DRG 174 ==
LOC: ER 13:36 → EDBD 13:36 → OVERFLOW 15:16 → ICU WEST 15:40 → TELE-CENTR 03-08 15:29
PROVIDERS: ADMIT Internal Medicine; ATTEND Internal Medicine
PROC: 027034Z Dilation of Coronary Artery, One Artery with Drug-eluting Intraluminal Device, Percutaneous Approach (ICD-10-PCS; principal; 2025-03-07)
PROC: B241ZZ3 Ultrasonography of Multiple Coronary Arteries, Intravascular (ICD-10-PCS; 2025-03-07)
PROC: 4A023N7 Measurement of Cardiac Sampling and Pressure, Left Heart, Percutaneous Approach (ICD-10-PCS; 2025-03-07)
PROC: B211YZZ Fluoroscopy of Multiple Coronary Arteries using Other Contrast (ICD-10-PCS; 2025-03-07)
DX: I21.09 ST elevation (STEMI) myocardial infarction involving other coronary artery of anterior wall (principal); N17.0 Acute kidney failure with tubular necrosis; E87.20 Acidosis, unspecified; E11.65 Type 2 diabetes mellitus with hyperglycemia; N18.9 Chronic kidney disease, unspecified; I12.9 Hypertensive chronic kidney disease with stage 1 through stage 4 chronic kidney disease, or unspecified chronic kidney disease; E11.22 Type 2 diabetes mellitus with diabetic chronic kidney disease; Z91.199 Patient's noncompliance with other medical treatment and regimen due to unspecified reason; E78.5 Hyperlipidemia, unspecified; R74.01 Elevation of levels of liver transaminase levels; I45.2 Bifascicular block; Z79.899 Other long term (current) drug therapy
CPT/HCPCS: 36415; 71045; 80048; 80053; 80061; 82306; 82607; 82962; 83036; 83605; 83735; 84100; 84443; 84484; 85025; 85610; 85730; 86850; 86900; 86901; 87081; 92941; 92978; 92979; 93306; 93458; 96365; 96366; 96375; 97116; 97163; 99152; 99291; G0378; J1815; J2250; J2405; Q9967